=== PATIENT | female | born 2000 | race Caucasian/White ===

== ENCOUNTER 2020-08-25 08:58 | Outpatient (CLI) | payer BC ==
[~2020-08-25] VITALS: Ht 175.3 cm; Wt 117.5 kg
[2020-08-25] VITALS (7 sets, daily range): BP systolic 101–115; BP diastolic 60–71; PULSE 60–75
[2020-08-25] MEDS ORDERED: APTIOM PO (10:04)
[2020-08-25] MEDS ORDERED: TROKEND100 PO (10:05)
[2020-08-25] MEDS ORDERED: TENORMIN 2525 MG/TAB PO (10:07)
[2020-08-25] MEDS ORDERED: VITAMIN D31000 I1 PO (10:08)
[2020-08-25] MEDS ORDERED: ONE-A-DAY ESSE1 EACH PO (10:09)
[2020-08-25 11:14] LABS: CSF APPEARANCE CLEAR; CSF COLOR COLORLESS; CSF RBC 3 /mm3 (0-0)
[2020-08-25 11:31] LABS: CSF MONONUCLEAR 100 % (70-100); CSF POLYMORPHONUCLEAR 0 % (0-6)
[2020-08-25 11:41] LABS: GLUCOSE,CSF 54 mg/dL (40-70); TOTAL PROTEIN,CSF 26 mg/dL (15-45)
--- NOTE | 2020-08-25 12:15 | NUR ---
DC instructions reviewed with pt and mother, both express understanding. Pt steady on feet while walking to restroom. No c/o headache. Has tolereated PO fluids without issue. She is assisted out to mom's car by wheelchair.
== END 2020-08-25 12:22 | disposition home or self-care (01) ==
LOC: COL.RAD 08:58
PROVIDERS: Family Medicine
DX: R51.9 Headache, unspecified (principal)